=== PATIENT | female | born 1935 | race Caucasian/White ===

== ENCOUNTER 2017-04-16 05:10 | Day surgery (SDC) | payer MEDICARE, BC ==
[2017-04-15 15:12] LABS: ANION GAP 9.7 mmol/L (8-16); CALCIUM 9.2 mg/dL (8.5-10.1); CARBON DIOXIDE 31.4 mmol/L (21.0-32.0); CREATININE - SERUM 1.3 mg/dL (0.6-1.3); POTASSIUM - SERUM 4.1 mmol/L (3.5-5.1)
[2017-04-15 15:18] LABS: BASOPHILS 0.3 % (0-2); HEMATOCRIT 37.5 % (36.0-48.0); HEMOGLOBIN 12.7 g/dL (12-16); IMMATURE GRANULOCYTES 0.3 % (0-5); LYMPHOCYTES 31.2 % (15-50); MCH 32.3 pg (26.0-34.0); MCHC 33.9 g/dL (31.0-37.0); MCV 95.4 fL (80.0-100.0); MEAN PLATELET VOLUME 10.1 fL (7.4-10.4); MONOCYTES 9.2 % (2-11); PLATELET COUNT 140 10x3/uL (130-400); RBC 3.93 10x6/uL (4.00-5.40); RDW 12.9 % (11.5-14.5); WBC 3.9 10x3/uL (4.8-10.8)
[~2017-04-16 05:10] MED LIST: BUTRANS1 EAC2 TRANSDERM; CALTRATE 600 M600 M1 PO; CARDIZEM120 MG PO; COZAAR100 MG PO; DEXILANT60 MG PO; EXFORGE 5-320 M1 TAB PO; FLAGYL500 MG PO; FLORANEX / LACT1 TAB PO; HYDROCODONE-APA1 TAB PO; MULTIPLE VITAMI1 TA1 PO; PEPCID20 MG PO; REGLAN5 MG PO; SYNTHROID88 MCG PO; VITAMIN D31000 UNI2 PO
[2017-04-16 05:51] VITALS: BP 150/94; BMI 17.6
[2017-04-16] MEDS ORDERED: DILAUDID2 MG PO (08:36)
--- NOTE | 2017-04-17 12:36 | OP ---
PATIENT NAME: KIRILL PINA MEDICAL RECORD: [id number] :39 LOCATION:D.OPS ADMISSION DATE: SURGEON: ONEAL SIMS MD DATE OF OPERATION: 04/16/2017 PREOPERATIVE DIAGNOSES: 1. Left inguinal hernia. 2. Hypertension. 3. Arthritis. POSTOPERATIVE DIAGNOSES: 1. Left inguinal hernia. 2. Hypertension. 3. Arthritis. PROCEDURE: Left inguinal hernia repair with medium PHS mesh. SURGEON: Oneal Sims MD REPORT OF PROCEDURE: The patient's left groin was prepped and draped in sterile fashion. An oblique incision was made above the inguinal ligament. Electrocautery was used to dissect through the subcutaneous tissue to the external oblique fascia. This fascia was opened up using electrocautery to the external ring. The patient's round ligament was elevated and ligated proximally and distally. There was a direct hernia defect. The defect was opened up and the preperitoneal space of Retzius was opened in all directions. A medium PHS mesh was inserted and sutured down on all 4 sides using interrupted 0 Vicryls. The ilioinguinal nerve was found and high ligated. We then irrigated out the wound and assured there was no sign of any bleeding. At this point, the external oblique fascia was closed with running 2-0 Vicryls, Terrell's was closed with interrupted 3-0 Vicryls, and the skin was closed with running subcutaneous 5-0 Monocryl. A 10 mL of 0.25% Marcaine with epinephrine was infused into the surrounding tissues and the wound was dressed appropriately. COMPLICATIONS: None. CONDITION: Stable. ANESTHESIA: General endotracheal and local. BLOOD LOSS: Minimal. TRANSINT:[id number] Voice Confirmation ID: [id number] DOCUMENT ID: [id number] ONEAL SIMS MD at 1236 CC: DAIN MARION MD [id number] DICTATION DATE: 04/16/17 0840 CORROSION CONTROL TECHNICIAN: 04/16/17 1139 [facility] 04/16/[address] [address]
== END 2017-04-16 10:30 | disposition home or self-care (01) ==
LOC: D.OPS 05:10 → D.PAN 07:30 → D.OPS 10:30
PROVIDERS: Surgery
DX: K40.90 Unilateral inguinal hernia, without obstruction or gangrene, not specified as recurrent (principal); R15.9 Full incontinence of feces; I10 Essential (primary) hypertension; M19.90 Unspecified osteoarthritis, unspecified site; Z01.812 Encounter for preprocedural laboratory examination

== ENCOUNTER → 2018-06-22 10:15 | Outpatient (CLI) | payer MEDICARE, BC ==
--- NOTE | ~2018-06-22 | EC ---
PATIENT:KIRILL PINA DATE OF SERVICE: 06/22/18 SEX: F MEDICAL RECORD: [id number] DATE OF : 39 LOCATION:D.[facility] AGE OF PATIENT: 83 ADMISSION DATE: 06/22/18 REFERRING PHYSICIAN: INTERPRETING PHYSICIAN: MANNY POLLACK MD ECHOCARDIOGRAM REPORT ECHO CHARGES 4 ECHO COMPLETE Date: 06/22/18 CLINICAL DIAGNOSIS: SARCOMA ECHOCARDIOGRAPHIC MEASUREMENTS (adult normal given) AC root (d.<3.7cm) 3.0 cm LV Septum d (<1.2 cm> 1.2 cm Valve Excursion 1.3 cm LV Septum (systole) 1.7 cm Left Atria (s.<4.0cm> 2.6 cm LVPW d(<1.2cm) 1.0 cm RV (d.<2.3cm) cm LVPW (sytole) 1.7 cm LV diastole(<5.6CM) 3.7 cm MV E-F(>70mm/sec) cm LV systole 2.8 cm LVOT Diameter 1.6 cm MV exc.(>10mm) cm Est.ejection fraction (50-75%) % DOPPLER: LVIT cm/sec A 82 cm/sec E 46 cm/sec LA cm/sec RVSP 34.7 mmHg LVOT 59 cm/sec AOP1/2T m/s Asc. Ao 193 cm/sec RVOT 41 cm/sec RA cm/sec PA 56 cm/sec AV Gradient Peak 14.9 mmHg AV Mean 9.3 mmHg AV Area 2.1 cm MV Gradient Peak 7.0 mmHg MV Mean 4.1 mmHg MV Area cm COMMENTS: Windows Architect: Jigna MARQUEZ Impregnator Helper: 1 Dr. Pollack TAPE# PACS Pericardial Effusion N DATE OF SERVICE: 06/22/2018 FINDINGS: 1. Left ventricular chamber within normal limits. Left ventricular systolic function is normal. Overall ejection fraction estimated at 65%. 2. Left atrium, right atrium, and right ventricular chamber sizes are within normal limits. 3. Valvular structures have normal structure and motion. 4. Doppler interrogation reveals mild tricuspid regurgitation, no other valvular insufficiency or stenosis. Pulmonary systolic pressure is normal ECHOCARDIOGRAM REPORT [id number] KIRILL PINA estimated 35 mmHg. 5. No evidence of pericardial effusion or left ventricular thrombus. TRANSINT:[id number] Voice Confirmation ID: [id number] DOCUMENT ID: [id number] MANNY POLLACK MD at 1324 CC: [id number] DICTATION DATE: 06/22/18 1246 MUSIC VIDEO PRODUCER: 06/22/18 1318 [facility] [address] [id number]
[~2018-06-22 10:15] MED LIST changes: +DILAUDID2 MG PO
== END | disposition home or self-care (01) ==
LOC: D.ECHO 10:15 → D.CT 11:30
DX: C46.0 Kaposi's sarcoma of skin (principal)

== ENCOUNTER 2019-02-20 01:23 | Emergency (ER) | payer MEDICARE, BC ==
[~2019-02-20] VITALS: Ht 160 cm; Wt 46.4 kg
[2019-02-20 01:25] VITALS: Ht 160 cm; Wt 46.4 kg
[2019-02-20] MEDS ORDERED: PEPCID AC20 MG PO (01:27)
[2019-02-20] MEDS ORDERED: CARTIA XT180 MG PO (01:29)
[2019-02-20] MEDS ORDERED: EDARBYCLOR 40-1 EACH PO (01:30)
[2019-02-20] MEDS ORDERED: HYDROCODON-ACE1 EA10 PO (01:30)
[2019-02-20] MEDS ORDERED: FLAGYL500 MG PO (01:31)
[2019-02-20 01:48] LABS: BASOPHILS 0.2 % (0-2); EOSINOPHILS 1.8 % (0-7); HEMATOCRIT 32.8 % (36.0-48.0); HEMOGLOBIN 11.5 g/dL (12-16); IMMATURE GRANULOCYTES 0.2 % (0-5); LYMPHOCYTES 23.4 % (15-50); MCH 32.1 pg (26.0-34.0); MCHC 35.1 g/dL (31.0-37.0); MCV 91.6 fL (80.0-100.0); MEAN PLATELET VOLUME 9.1 fL (7.4-10.4); MONOCYTES 12.3 % (2-11); NEUTROPHILS 62.1 % (40-80); RBC 3.58 10x6/uL (4.00-5.40); RDW 13.1 % (11.5-14.5); WBC 5.1 10x3/uL (4.8-10.8)
[2019-02-20 01:55] LABS: PLATELET COUNT 171 10x3/uL (130-400)
[2019-02-20 02:08] LABS: ALBUMIN 3.5 g/dL (3.4-5.0); ALKALINE PHOSPHATASE 117 U/L (46-116); ALT (SGPT) 57 U/L (10-68); CALC OSMOLALITY 267 mosm/kg (275-300); CALCIUM 9.5 mg/dL (8.5-10.1); CARBON DIOXIDE 25.6 mmol/L (21.0-32.0); CHLORIDE - SERUM 96 mmol/L (98-107); CREATININE - SERUM 1.3 mg/dL (0.6-1.3); GLUCOSE 115 mg/dL (74-106); POTASSIUM - SERUM 3.5 mmol/L (3.5-5.1); PROTEIN - SERUM 6.3 g/dL (6.4-8.2); SODIUM 131 mmol/L (136-145); UREA NITROGEN 24 mg/dL (7-18); eGFR NON AFRICAN AMERICAN 42 mL/min (90-120)
[2019-02-20 02:20] LABS: CKMB 0.6 U/L (0.0-3.6); CREATINE KINASE 52 UL (21-215)
[2019-02-20 02:21] LABS: TROPONIN-I < 0.017 ng/mL (0.000-0.060)
[2019-02-20 02:48] LABS: APPEARANCE HAZY (CLEAR); BACTERIA MANY /hpf (NONE SEEN); BILIRUBIN NEGATIVE (NEGATIVE); COLOR YELLOW (YELLOW); EPITHELIAL CELLS 0-5 /hpf (0-5); GLUCOSE NEGATIVE (NEGATIVE); KETONE NEGATIVE (NEGATIVE); NITRITE POSITIVE (NEGATIVE); PROTEIN NEGATIVE (NEGATIVE); RED CELLS - URINE 0-5 /hpf (0-5); SPECIFIC GRAVITY 1.015 (1.005-1.020); UROBILINOGEN NORMAL (NORMAL)
[2019-02-20 03:57] VITALS: BP 124/77
[2019-02-21] MEDS ORDERED: ASPIRIN81 MG PO (19:29)
[2019-02-21] MEDS ORDERED: ALEVE220 MG PO (19:32)
[2019-02-21] MEDS ORDERED: CIPRO250 MG PO (19:35)
== END 2019-02-20 04:02 | disposition home or self-care (01) ==
LOC: D.ER 01:23
PROVIDERS: Family Medicine
DX: R55 Syncope and collapse (principal); E86.0 Dehydration; R19.7 Diarrhea, unspecified

== ENCOUNTER 2019-02-21 18:14 | Inpatient (IN) | payer MEDICARE, BC ==
[~2019-02-21] VITALS: Ht 160 cm; Wt 47.6 kg
[~2019-02-21 18:14] MED LIST changes: +CARTIA XT180 MG PO; +EDARBYCLOR 40-1 EACH PO; +HYDROCODON-ACE1 EA10 PO; +PEPCID AC20 MG PO
[2019-02-21 18:59] VITALS: BMI 18.6
[2019-02-21] MEDS ORDERED: ASPIRIN81 MG PO (19:29)
[2019-02-21] MEDS ORDERED: ALEVE220 MG PO (19:32)
[2019-02-21] MEDS ORDERED: CIPRO250 MG PO (19:35)
[2019-02-21 20:00] VITALS: BP 135/80
--- NOTE | 2019-02-21 20:07 | NUR ---
PATIENT RESTING IN BED WITH AT BEDSIDE. PATIENT REQUESTED PAIN MEDS AND ZOFRAN. PATIENT DENIES OTHER NEEDS AT THIS TIME. BED IN LOWEST POSITION AND CALL LIGHT WITHIN REACH. ENCOURAGED THE PATIENT TO CALL IF SHE HAS OTHER NEEDS. WILL CONTINUE TO MONITOR.
[2019-02-21 20:33] LABS: BASOPHILS 0.5 % (0-2); EOSINOPHILS 1.3 % (0-7); HEMOGLOBIN 11.1 g/dL (12-16); IMMATURE GRANULOCYTES 0.3 % (0-5); LYMPHOCYTES 23.4 % (15-50); MCH 32.4 pg (26.0-34.0); MCHC 35.8 g/dL (31.0-37.0); MCV 90.4 fL (80.0-100.0); MEAN PLATELET VOLUME 9.7 fL (7.4-10.4); MONOCYTES 9.3 % (2-11); NEUTROPHILS 65.2 % (40-80); PLATELET COUNT 167 10x3/uL (130-400); RBC 3.43 10x6/uL (4.00-5.40); RDW 12.9 % (11.5-14.5); WBC 3.9 10x3/uL (4.8-10.8)
[2019-02-21 20:46] LABS: ALBUMIN 3.5 g/dL (3.4-5.0); ANION GAP 11.5 mmol/L (8-16); BILIRUBIN - TOTAL 0.48 mg/dL (0.2-1.3); CARBON DIOXIDE 26.2 mmol/L (21.0-32.0); CREATININE - SERUM 1.1 mg/dL (0.6-1.3); POTASSIUM - SERUM 3.7 mmol/L (3.5-5.1); PROTEIN - SERUM 6.5 g/dL (6.4-8.2)
[2019-02-21 22:38] LABS: APPEARANCE CLEAR (CLEAR); BILIRUBIN NEGATIVE (NEGATIVE); COLOR YELLOW (YELLOW); GLUCOSE NEGATIVE (NEGATIVE); KETONE NEGATIVE (NEGATIVE); NITRITE NEGATIVE (NEGATIVE); PROTEIN NEGATIVE (NEGATIVE); UROBILINOGEN NORMAL (NORMAL)
[2019-02-22 06:58] VITALS: BP 111/74
[2019-02-22 07:01] LABS: BASOPHILS 0.3 % (0-2); EOSINOPHILS 2.8 % (0-7); HEMOGLOBIN 11.3 g/dL (12-16); IMMATURE GRANULOCYTES 0.3 % (0-5); LYMPHOCYTES 28.9 % (15-50); MCH 31.9 pg (26.0-34.0); MCHC 35.3 g/dL (31.0-37.0); MCV 90.4 fL (80.0-100.0); MEAN PLATELET VOLUME 9.4 fL (7.4-10.4); MONOCYTES 12.5 % (2-11); NEUTROPHILS 55.2 % (40-80); PLATELET COUNT 177 10x3/uL (130-400); RBC 3.54 10x6/uL (4.00-5.40); RDW 12.7 % (11.5-14.5); WBC 3.5 10x3/uL (4.8-10.8)
[2019-02-22 07:18] LABS: ANION GAP 9.8 mmol/L (8-16); CALCIUM 8.9 mg/dL (8.5-10.1); CARBON DIOXIDE 26.7 mmol/L (21.0-32.0); CREATININE - SERUM 1.1 mg/dL (0.6-1.3); MAGNESIUM - SERUM 1.6 mg/dL (1.8-2.4); PHOSPHOROUS 2.3 mg/dL (2.5-4.9); POTASSIUM - SERUM 3.5 mmol/L (3.5-5.1)
[2019-02-22 08:00] VITALS: BP 122/70
--- NOTE | 2019-02-22 10:34 | NUR ---
AM MEDS GIVEN AT THIS TIME, PT VERY NAUSEOUS WAS NOT ABLE TO KEEP MEDICATIONS DOWN. GAVE 4MG OF ZOFRAN AT THIS TIME. WILL REPLACE MAG IV INSTEAD. PT DENIES ANY NEED AT THIS TIME. CALL LIGHT IN REACH, NAD NOTED, FAMILY AT BEDSIDE, WILL CONTINUE TO MONITOR.
[2019-02-22 11:13] VITALS: Ht 160 cm; Wt 47.6 kg
--- NOTE | 2019-02-22 11:59 | MORECARE ---
CASE MANAGEMENT DISCHARGE SUMMARY PATIENT: KRIILL PINA UNIT: [id number] ADM DATE: 02/21/19 AGE: 83 : 37 SEX: F ROOM/BED: D.1207 AUTHOR: ERLINDA WALKER PHYSICIAN: REFERRING PHYSICIAN: PARAM MARION MD DATE OF SERVICE: 02/22/19 Discharge Plan Patient Name: KIRILL PINA [facility] [facility] 1935 Planned Disposition: Home Anticipated Discharge Date: 02/24/19 Discharge Date: Expected LOS: 3 Initial Reviewer: [email or web address] Initial Review Date: 02/21/2019 Generated: 02/22/19 12:58 pm Patient Name: KIRILL PINA Page 44989 at 1159 All edits/amendments must be made on the electronic document DICTATION DATE: 02/22/19 1158 DIGGING MACHINE OPERATOR: GARY 02/22/19 1158 RPT#: [id number] DC DATE: STATUS: ADM IN [facility] [address] [place] [address] END OF REPORT
--- NOTE | 2019-02-22 12:08 | MORECARE ---
CASE MANAGEMENT DISCHARGE SUMMARY PATIENT: KIRILL PINA UNIT: [id number] ADM DATE: 02/22/19 AGE: 83 : 37 SEX: F ROOM/BED: D.1207 AUTHOR: AARON,DOC PHYSICIAN: REFERRING PHYSICIAN: PARAM BRUNNER MD DATE OF SERVICE: 02/22/19 Discharge Plan Patient Name: KIRILL PINA Facility: [facility]:[place] : 1935 Planned Disposition: Home Anticipated Discharge Date: 02/24/19 Discharge Date: Expected LOS: 3 Initial Reviewer: [email or web address] Initial Review Date: 02/21/2019 Generated: 02/22/19 1:08 pm DCP- Discharge Planning Updated by [email or web address]: Britney Kan on 02/22/19 11:[address] Patient Name: KIRILL PINA Admission Status: Elective Accout number: [id number] Admission Date: 02-21-2019 : 1935 Admission Diagnosis: Attending: DAIN BRUNNER Current LOS: 1 Anticipated DC Date: 02-24-2019 Planned Disposition: Home Primary Insurance: MEDICARE A & B Discharge Planning Comments: DC PLAN: Return home with spouse independently. DC NEEDS: Denied dc needs. CM met with patient to complete initial dc planning assessment. CM educated patient on the CM role and verbal consent given by patient to complete assessment. CM verified patient's address, phone number, and emergency contact phone numbers. Patient lives at home with her . At discharge patient plans to return home and feels this is a safe discharge. CM discussed availability of home health, rehab services, and medical equipment. Patient denied known discharge needs at this time. Patient reports her will transport her home at time of discharge. CM will continue to follow and will assist as needed with dc plans/needs. Back End Engineer: Britney Kan RN, [facility] DCPIA - Discharge Planning Initial Assessment Updated by [email or web address]: Britney Kan on 02/22/19 11:59 am * Is the patient Alert and Oriented? Yes * How many steps to enter\exit or inside your home? bibe * PCP Dr. Brunner * Pharmacy [facility] * Preadmission Environment Home with Family * ADLs Independent * Equipment None * List name and contact numbers for known caregivers / representatives who currently or will assist patient after discharge: Iraj hernandez - [phone] * Verbal permission to speak to the caregivers and representatives has been obtained from the patient. Yes * Community resources currently utilized None * Additional services required to return to the preadmission environment? No * Can the patient safely return to the preadmission environment? Yes * Has this patient been hospitalized within the prior 30 days at any hospital? No Last DP export: 02/22/19 10:59 a Patient Name: KIRILL PINA Page [id number] at 1208 All edits/amendments must be made on the electronic document DICTATION DATE: 02/22/191207 PIZZAMAKER: GARY 02/22/191207 RPT#: [id number] DC DATE: STATUS: ADM IN [facility] [address] [place] [address] END OF REPORT
[2019-02-22 12:17] VITALS: BP 155/83
--- NOTE | 2019-02-22 12:52 | NUR ---
REPORT RECIEVED FROM TABITHA MOFFETT. POC WILL BE RESUMED. PT C/O BACK PAIN AND NAUSEA. PAIN MEDS AND ANTIEMETICS ARE NOT DUE YET. WILL CONTINUE TO MONITOR.
[2019-02-22 18:32] VITALS: BP 136/76
[2019-02-22 19:00] VITALS: BP 123/64
--- NOTE | 2019-02-22 19:30 | NUR ---
REC'D TO CARE, BINDER AND BOX BUILDER PER FLOWSHEET. PT RESTING QUIETLY, AT BS. VSS. PT DENIES NAUSEA, REPORTS "BACK STARTING TO HURT AGAIN". WILL ADMIN PRN MEDS NEEDED. C/L IN REACH.
--- NOTE | 2019-02-22 20:12 | NUR ---
ADMIN PRN DEMEROL PER PT REQUEST - SEE EMAR. AT BS. PT REPOSITIONED SELF TO R SIDE. C/L IN REACH.
[2019-02-22 23:22] VITALS: BP 122/73
--- NOTE | 2019-02-22 23:32 | NUR ---
UP TO BR, VOIDED 300ML CLEAR, YELLOW URINE. C/O BACK PAIN AFTER GETTING UP. ADMIN PRN NORCO - SEE FLOWSHEET, GIVEN SPRITE TO DRINK. DENIES OTHER NEEDS. C/L IN REACH.
--- NOTE | 2019-02-23 03:15 | NUR ---
VSS. PT RESTING QUIETLY, DENIES PAIN OR NEEDS. C/L IN REACH.
[2019-02-23 03:45] VITALS: BP 121/67
[2019-02-23 06:02] LABS: BASOPHILS 0.2 % (0-2); EOSINOPHILS 0.9 % (0-7); HEMATOCRIT 29.7 % (36.0-48.0); IMMATURE GRANULOCYTES 0.2 % (0-5); LYMPHOCYTES 28.1 % (15-50); MCH 32.9 pg (26.0-34.0); MCV 88.9 fL (80.0-100.0); MEAN PLATELET VOLUME 9.1 fL (7.4-10.4); MONOCYTES 11.6 % (2-11); PLATELET COUNT 168 10x3/uL (130-400); RBC 3.34 10x6/uL (4.00-5.40); RDW 12.6 % (11.5-14.5); WBC 4.2 10x3/uL (4.8-10.8)
[2019-02-23 06:20] LABS: CALCIUM 7.8 mg/dL (8.5-10.1); CARBON DIOXIDE 24.6 mmol/L (21.0-32.0); POTASSIUM - SERUM 3.6 mmol/L (3.5-5.1)
--- NOTE | 2019-02-23 06:26 | NUR ---
PHARMACY NOTIFIED OF ORDER FOR NA [facility].
[2019-02-23 07:30] VITALS: BP 136/75
--- NOTE | 2019-02-23 08:25 | NUR ---
PT AWAKE, ALERT, AND ORIENTED. VSS AT THIS TIME. DENIES NEEDS OR PAIN. RR EVEN AND UNLABORED. NO DISTRESS NOTED. WILL CONTINUE TO MONITOR.
--- NOTE | 2019-02-23 15:48 | NUR ---
I have reviewed this patient and I concur with the Shift Assessment completed by the Licensed Practical Nurse today this shift.
[2019-02-23 18:28] VITALS: BP 150/72
[2019-02-23 19:10] VITALS: BP 131/71
--- NOTE | 2019-02-23 19:25 | NUR ---
REC'D TO CARE, SPINNING FRAME TENDER PER FLOWSHEET. PT AWAKE AND ORIENTED, VSS. DENIES PAIN OR NAUSEA. UP TO BR AND AMBULATES IN ROOM INDEPENDENTLY. IVF INFUSING TO R FA PIV, DSG C/D/I. PT DENIES NEEDS. C/L IN REACH.
--- NOTE | 2019-02-23 22:36 | NUR ---
PT ON C/L, C/O PAIN - ADMIN PRN NORCO - SEE EMAR. PT UP TO BR, THEN BACK TO BED. DENIES OTHER NEEDS. C/L IN REACH.
--- NOTE | 2019-02-23 22:36 | NUR ---
PT ON C/L, REQUESTING PAIN MED - ADMIN PRN MORPHINE. SEE EMAR. PT UP TO BR. THEN BACK TO BED. C/L IN REACH.
[2019-02-23 23:10] VITALS: BP 121/62
--- NOTE | 2019-02-23 23:31 | NUR ---
PT RESTING WITH EYES CLOSED, NO SIGN OF DISTRESS. C/L IN REACH.
[2019-02-24 03:15] VITALS: BP 116/62
--- NOTE | 2019-02-24 03:30 | NUR ---
VSS. PT AWAKE, PLAN FOR BATH THIS AM. C/L IN REACH.
--- NOTE | 2019-02-24 04:30 | NUR ---
BATH AND LINEN CHANGE DONE. GOWN AND UNDERWEAR CHANGED. PT C/O PAIN AFTER BATH. ADMIN PRN DEMEROL - SEE EMAR. PT DENIES OTHER NEEDS, C/L IN REACH.
[2019-02-24 07:22] LABS: BASOPHILS 0 % (0-2); EOSINOPHILS 0.5 % (0-7); HEMATOCRIT 30.7 % (36.0-48.0); HEMOGLOBIN 10.8 g/dL (12-16); LYMPHOCYTES 19.1 % (15-50); MCHC 35.2 g/dL (31.0-37.0); MEAN PLATELET VOLUME 9.3 fL (7.4-10.4); MONOCYTES 10.4 % (2-11); PLATELET COUNT 181 10x3/uL (130-400); RBC 3.37 10x6/uL (4.00-5.40); RDW 13.3 % (11.5-14.5)
--- NOTE | 2019-02-24 07:30 | NUR ---
PT RESTING. DENIES NEEDS AT THIS TIME. ALERT AND ORIENTED. BEDSIDE REPORT RECIEVED. RR EVEN AND UNLABORED. WILL CONTINUE TO MONITOR.
[2019-02-24 07:32] LABS: MCV 91.1 fL (80.0-100.0)
[2019-02-24 07:42] LABS: CALCIUM 8.3 mg/dL (8.5-10.1); CARBON DIOXIDE 24.9 mmol/L (21.0-32.0); CREATININE - SERUM 0.9 mg/dL (0.6-1.3); MAGNESIUM - SERUM 1.8 mg/dL (1.8-2.4); PHOSPHOROUS 1.7 mg/dL (2.5-4.9); POTASSIUM - SERUM 3.9 mmol/L (3.5-5.1)
[2019-02-24 08:01] VITALS: BP 122/66
--- NOTE | 2019-02-24 09:54 | NUR ---
NUTRITION F/U CHART REVIEWED. PT REMAINS ON CLEAR LIQUID DIET. RECOMMEND ADVANCING DIET WHEN MEDICALLY FEASIBLE. MAY BENEFIT FROM PROCALAMINE IF UNABLE TO ADVANCE DIET IN [address] FOLLOWING
--- NOTE | 2019-02-24 14:21 | NUR ---
I have reviewed this patient and I concur with the Shift Assessment completed by the Licensed Practical Nurse today this shift.
[2019-02-24 18:28] VITALS: BP 131/81
--- NOTE | 2019-02-24 20:15 | NUR ---
FAMILY MEMBERS VISITING.
--- NOTE | 2019-02-24 20:15 | NUR ---
CHECKED PT TEMP 99.4
[2019-02-24 22:15] VITALS: BP 140/85
--- NOTE | 2019-02-24 23:16 | NUR ---
REST IN BED, CALL LIGHT IN REACH.
--- NOTE | 2019-02-25 02:09 | NUR ---
REST IN BED, RESP REGULAR AND EVEN, NO S/S DISTRESS. CALL LIGHT IN REACH.
--- NOTE | 2019-02-25 02:19 | NUR ---
I have reviewed this patient and I concur with the Shift Assessment completed by the Licensed Practical Nurse today this shift.
--- NOTE | 2019-02-25 04:12 | NUR ---
REST IN BED, EYE CLOSE, CALL LIGHT IN REACH.
[2019-02-25 06:13] VITALS: BP 144/81
[2019-02-25 07:00] LABS: ANION GAP 11.1 mmol/L (8-16); CALCIUM 8.2 mg/dL (8.5-10.1); CARBON DIOXIDE 23.8 mmol/L (21.0-32.0); CREATININE - SERUM 0.8 mg/dL (0.6-1.3); MAGNESIUM - SERUM 1.6 mg/dL (1.8-2.4); POTASSIUM - SERUM 3.9 mmol/L (3.5-5.1)
[2019-02-25 07:14] LABS: PHOSPHOROUS 1.5 mg/dL (2.5-4.9)
[2019-02-25 07:15] LABS: BASOPHILS 0.2 % (0-2); EOSINOPHILS 1.8 % (0-7); HEMATOCRIT 30.9 % (36.0-48.0); HEMOGLOBIN 10.8 g/dL (12-16); IMMATURE GRANULOCYTES 0.2 % (0-5); LYMPHOCYTES 22.7 % (15-50); MCH 32.1 pg (26.0-34.0); MEAN PLATELET VOLUME 9.5 fL (7.4-10.4); MONOCYTES 10.9 % (2-11); NEUTROPHILS 64.2 % (40-80); PLATELET COUNT 173 10x3/uL (130-400); RBC 3.36 10x6/uL (4.00-5.40); RDW 13.4 % (11.5-14.5)
--- NOTE | 2019-02-25 07:24 | NUR ---
ROUNDING DONE WITH PATIENT VOIVING NO NEEDS. NS W 20 MEQ INFUSING AT 100 CC/HR TO RIGHT WRIST WITHOUT PROBLEMS. ON ROOM AIR. ON EP, K+ IS 3.9, PHOS IS 1.5 WILL COVER WITH ORAL SUPPLEMENTS. ON FLUID RESTRICTION.
[2019-02-25 07:27] LABS: WBC 5.1 10x3/uL (4.8-10.8)
[2019-02-25 08:25] VITALS: BP 146/86
[2019-02-25 11:36] VITALS: BP 141/82
[2019-02-25 14:18] VITALS: BP 124/76
[2019-02-25 15:10] LABS: OVA + PARASITE EXAM Final report (())
--- NOTE | 2019-02-25 19:40 | NUR ---
PT CARE ASSUMED. RR EVEN AND UNLABORED. DENIES NEEDS AT THIS TIME. NO S/S OF DISTRESS NOTED. PRESENT AT BEDSIDE. CALL LIGHT IN REACH. WILL CPOC.
[2019-02-25 20:00] VITALS: BP 136/64
[2019-02-26 00:23] VITALS: BP 119/70
[2019-02-26 04:49] VITALS: BP 135/83
[2019-02-26 06:05] LABS: BASOPHILS 0.4 % (0-2); EOSINOPHILS 1.3 % (0-7); HEMATOCRIT 34.7 % (36.0-48.0); HEMOGLOBIN 12.1 g/dL (12-16); IMMATURE GRANULOCYTES 0.2 % (0-5); LYMPHOCYTES 28.4 % (15-50); MCH 32.1 pg (26.0-34.0); MCHC 34.9 g/dL (31.0-37.0); MEAN PLATELET VOLUME 9.1 fL (7.4-10.4); MONOCYTES 9.7 % (2-11); PLATELET COUNT 178 10x3/uL (130-400); RBC 3.77 10x6/uL (4.00-5.40); RDW 13.3 % (11.5-14.5); WBC 5.4 10x3/uL (4.8-10.8)
--- NOTE | 2019-02-26 06:10 | NUR ---
I have reviewed this patient and I concur with the Shift Assessment completed by the Licensed Practical Nurse today this shift.
[2019-02-26 06:31] LABS: ANION GAP 10.2 mmol/L (8-16); CALCIUM 8.7 mg/dL (8.5-10.1); CARBON DIOXIDE 27.6 mmol/L (21.0-32.0); MAGNESIUM - SERUM 1.6 mg/dL (1.8-2.4); POTASSIUM - SERUM 3.8 mmol/L (3.5-5.1)
[2019-02-26 06:32] LABS: PHOSPHOROUS 2.3 mg/dL (2.5-4.9)
--- NOTE | 2019-02-26 06:36 | NUR ---
D/C IV TO R FA. CATHETER TIP INTACT. RESITED 22G L FA. PT TOLERATED WELL.
[2019-02-26 08:48] VITALS: BP 137/74
--- NOTE | 2019-02-26 12:10 | NUR ---
PT SITTING ON SIDE OF BED, SPOUSE AT BEDSIDE, DENIES ANY NEEDS AT THIS TIME, WILL CONT TO FOLLOW POC
--- NOTE | 2019-02-26 13:00 | NUR ---
PT UP WALKING THE HALLS WITH SPOUSE
--- NOTE | 2019-02-26 17:13 | NUR ---
PT SITTING UP IN BED EATTING SUPPER, DENIES ANY NEEDS AT THIS TIME, WILL CONT TO FOLLOW POC
--- NOTE | 2019-02-26 19:38 | NUR ---
PT CARE ASSUMED. RR EVEN AND UNLABORED. NO S/S OF DISTRESS NOTED. PT DENIES NEEDS AT THIS TIME. AT BEDSIDE. WILL CPOC.
[2019-02-26 20:00] VITALS: BP 140/81
[2019-02-27] VITALS (7 sets, daily range): BP systolic 126–141; BP diastolic 70–86
--- NOTE | 2019-02-27 07:20 | NUR ---
PT RESTING IN BED, SHIFT ASSESSMENT PERFORMED, VSS AND WNL. DENIES ANY FURTHER NEEDS AT THIS TIME, WILL CONT TO FOLLOW POC
[2019-02-27 07:44] LABS: BASOPHILS 0.2 % (0-2); HEMATOCRIT 32.8 % (36.0-48.0); IMMATURE GRANULOCYTES 0.2 % (0-5); LYMPHOCYTES 26.8 % (15-50); MCH 33.1 pg (26.0-34.0); MCHC 36.6 g/dL (31.0-37.0); MCV 90.6 fL (80.0-100.0); MONOCYTES 10.4 % (2-11); NEUTROPHILS 61.4 % (40-80); PLATELET COUNT 174 10x3/uL (130-400); RBC 3.62 10x6/uL (4.00-5.40); WBC 4.1 10x3/uL (4.8-10.8)
[2019-02-27 08:08] LABS: ANION GAP 9.1 mmol/L (8-16); CALCIUM 8.6 mg/dL (8.5-10.1); CARBON DIOXIDE 28.2 mmol/L (21.0-32.0); CREATININE - SERUM 0.9 mg/dL (0.6-1.3); POTASSIUM - SERUM 4.3 mmol/L (3.5-5.1)
--- NOTE | 2019-02-27 08:53 | NUR ---
PT COMPLAINS OF PAIN TO BACK. PRN NORCO GIVEN ORDERED. WILL CONT TO FOLLOW POC
--- NOTE | 2019-02-27 12:20 | NUR ---
PT SITTING ON EDGE OF BED EATING LUNCH, DENIES ANY NEEDS AT THIS TIME, WILL CONT TO FOLLOW POC
--- NOTE | 2019-02-27 15:00 | NUR ---
PT WALKING THE HALLS WITH SPOUSE
--- NOTE | 2019-02-27 19:20 | NUR ---
SITTING UP ON SIDE OF BED TALKING TO FAMILY. ALERT AND ORIENTED X4. RESP EVEN AND NONLABORED. REPORTS CHRONIC PAIN IN BACK RATING 7 ON PAIN SCALE. DENIES ABD PAIN, NAUSEA OR DIARRHEA. SALINE LOCK NOTED TO LT FOREARM. INFORMED PT THAT SHE IS SCHEDULED FOR EGD IN AM. SHE VERBALIZED UNDERSTANDING. AMBULATORY. CL IN REACH.
--- NOTE | 2019-02-27 20:10 | NUR ---
MEDICATED WITH HYDROCODONE FOR C/O PAIN IN BACK RATING 8.
--- NOTE | 2019-02-27 20:30 | NUR ---
CONSENT FOR EGG WITH TIVA SIGNED AT THIS TIME. PT HAS HAD PROCEDURE BEFORE AND VERBALIZES UNDERSTANDING. CONSENTS PLACED ON CHART.
--- NOTE | 2019-02-27 21:38 | NUR ---
C/O NAUSEA. MEDICATED WITH ZOFRAN AT THIS TIME. REFUSES QUESTRAN DUE TO NAUSEA. CL IN REACH.
--- NOTE | 2019-02-27 22:45 | NUR ---
RESTING QUIETLY WITH EYES CLOSED. RESP EVEN AND NONLABORED. NO DISTRESS. CL IN REACH.
--- NOTE | 2019-02-27 23:59 | NUR ---
MEDICATED WITH TYLENOL FOR C/O CHRONIC BACK PAIN. REMINDED OF NPO STATUS AFTER MIDNIGHT AND SHE VERBALIZED UNDERSTANDING. CL IN REACH.
[2019-02-28 03:50] VITALS: BP 137/82
--- NOTE | 2019-02-28 03:54 | NUR ---
HAS RESTED WELL SO FAR THIS SHIFT. UP TO BR TO VOID. NO DISTRESS. CL IN REACH.
[2019-02-28 06:16] LABS: BASOPHILS 0.2 % (0-2); EOSINOPHILS 0.9 % (0-7); HEMATOCRIT 33.5 % (36.0-48.0); HEMOGLOBIN 11.9 g/dL (12-16); IMMATURE GRANULOCYTES 0.2 % (0-5); LYMPHOCYTES 26.9 % (15-50); MCHC 35.5 g/dL (31.0-37.0); MCV 90.1 fL (80.0-100.0); MONOCYTES 11.8 % (2-11); PLATELET COUNT 187 10x3/uL (130-400); RBC 3.72 10x6/uL (4.00-5.40); RDW 13.1 % (11.5-14.5); WBC 4.5 10x3/uL (4.8-10.8)
[2019-02-28 06:47] LABS: ANION GAP 11.7 mmol/L (8-16); CALCIUM 8.6 mg/dL (8.5-10.1); CARBON DIOXIDE 25.9 mmol/L (21.0-32.0)
[2019-02-28 06:48] LABS: POTASSIUM - SERUM 3.6 mmol/L (3.5-5.1)
[2019-02-28 07:39] VITALS: BP 130/86
[2019-02-28 08:31] LABS: % SATURATION 29 % (15-55); IRON 73 ug/dl (35-150); TOTAL IRON BIND CAPACITY 248 ug/dl (260-445); UNSAT IRON BIND CAPACITY 175 ug/dl (150-375)
[2019-02-28 08:59] LABS: FERRITIN 47 ng/mL (3-244); MAGNESIUM - SERUM 1.7 mg/dL (1.8-2.4)
--- NOTE | 2019-02-28 10:45 | NUR ---
CALLED GI LAB AND WAS INFORMED THAT PT IS NOT GOING FOR EGD UNTIL AFTER 2. GAVE PT NORCO FOR PAIN LEVEL OF 9/10. PT DENIES ANY OTHER NEEDS AT THIS TIME. CALL LIGHT IN REACH, AT BEDSIDE, NAD NOTED, WILL CONTINUE TO MONITOR.
--- NOTE | 2019-02-28 13:28 | NUR ---
Nutrition FOllow-up: Diet: Mech soft (currently NPO for EGD) PO intake: 38% x last 6 meals Reports tolerating diet and appetite a little better. Doesn't like Ensure clear, wants regular Ensure chocolate. Last BM 02/26/19 x 4 Last wt: 105# (02/22/19) Labs reviewed Significant meds: reglan, synthroid, flagyl, others reviewed RD Following
[2019-02-28 14:10] VITALS: BP 123/77
--- NOTE | 2019-02-28 14:27 | NUR ---
PT TO GI LAB AT THIS TIME, VIA BED, NAD NOTED.
--- NOTE | 2019-02-28 14:59 | NUR ---
EGD COMPLETED, BALLOON DILITATION 18.
--- NOTE | 2019-02-28 15:25 | NUR ---
RECEIVED PT BACK TO ROOM 1207. PT A LITTLE SLEEPY BUT EASILY AROUSES TO VOICE. VITAL SIGNS STABLE. PT DENIES ANY NEEDS AT THIS TIME. CALL LIGHT IN REACH, NAD NOTED, WILL CONTINUE TO MONITOR.
[2019-02-28 16:20] VITALS: BP 137/85
--- NOTE | 2019-02-28 18:50 | NUR ---
EVENING ROUNDS COMPLETE. PT LAYING IN BED, NO C/O PAIN AT THIS TIME. C/O DIAHRRHEA PRN MED LOMOTIL GIVEN. CL IN REACH, BED IN LOWEST POSITION. CONT WITH POC.
--- NOTE | 2019-02-28 19:30 | NUR ---
ATTEMPTED TO GIVE PT IVPB, WHEN SALINE LOCKED IV FLUSHED, FLUID WAS NOTED UNDER TEGADERM. IV REMOVED WITH TIP INTACT. NEW IV STARTED IN R FOREARM. PT TOLERATED WELL. EVENING MEDS STARTED. CONT WITH POC.
[2019-02-28 23:21] VITALS: BP 124/69
[2019-03-01 04:17] VITALS: BP 122/70
[2019-03-01 05:59] LABS: BASOPHILS 0.3 % (0-2); EOSINOPHILS 1.1 % (0-7); HEMATOCRIT 33.1 % (36.0-48.0); HEMOGLOBIN 11.7 g/dL (12-16); IMMATURE GRANULOCYTES 0.3 % (0-5); LYMPHOCYTES 29.6 % (15-50); MCH 31.9 pg (26.0-34.0); MCHC 35.3 g/dL (31.0-37.0); MCV 90.2 fL (80.0-100.0); MEAN PLATELET VOLUME 9.1 fL (7.4-10.4); MONOCYTES 14.1 % (2-11); NEUTROPHILS 54.6 % (40-80); PLATELET COUNT 181 10x3/uL (130-400); RBC 3.67 10x6/uL (4.00-5.40); RDW 13.3 % (11.5-14.5); WBC 3.8 10x3/uL (4.8-10.8)
[2019-03-01 06:27] LABS: ANION GAP 11.7 mmol/L (8-16); CALCIUM 8.7 mg/dL (8.5-10.1); CARBON DIOXIDE 26.7 mmol/L (21.0-32.0); CREATININE - SERUM 1.1 mg/dL (0.6-1.3); POTASSIUM - SERUM 3.4 mmol/L (3.5-5.1)
--- NOTE | 2019-03-01 07:54 | NUR ---
PT RESTING. RR EVEN AND UNLABORED. NO DISTRESS NOTED. WILL CONTINUE TO MONITOR.
[2019-03-01 09:39] VITALS: BP 151/87
[2019-03-01 11:05] VITALS: BP 128/81
[2019-03-01] MEDS ORDERED: LOMOTIL 2.5-0.1 EAC1 PO (15:46)
--- NOTE | 2019-03-01 17:09 | NUR ---
IV D/C WITH CATHETER TIP INTACT. D/C PAPERWORK REVIEWED AND SIGNED. NO FURTHER QUESTIONS AND VERBALIZED UNDERSTANDING. LEFT VIA WHEELCHAIR. PT SENT WITH ALL BELONGINGS.
--- NOTE | 2019-03-01 18:07 | MORECARE ---
CASE MANAGEMENT DISCHARGE SUMMARY PATIENT: KIRILL PINA UNIT: [id number] ADM DATE: 02/22/19 AGE: 83 : 37 SEX: F ROOM/BED: D.1207 AUTHOR: ERLINDA WALKER PHYSICIAN: REFERRING PHYSICIAN: PARAM BRUNNER MD DATE OF SERVICE: 03/01/19 Discharge Plan Patient Name: KIRILL PINA Facility: [facility]:[place] : 1935 Planned Disposition: Home Anticipated Discharge Date: 02/24/19 Discharge Date: 03/01/2019 Expected LOS: 2 Initial Reviewer: [email or web address] Initial Review Date: 02/21/2019 Generated: 03/01/19 7:07 pm DCP- Discharge Planning Updated by [email or web address]: Britney Kan on 02/22/19 11:[address] Patient Name: KIRILL PINA Admission Status: Elective Accout number: [id number] Admission Date: 02-21-2019 : 1935 Admission Diagnosis: Attending: DAIN BRUNNER Current LOS: 1 Anticipated DC Date: 02-24-2019 Planned Disposition: Home Primary Insurance: MEDICARE A & B Discharge Planning Comments: DC PLAN: Return home with spouse independently. DC NEEDS: Denied dc needs. CM met with patient to complete initial dc planning assessment. CM educated patient on the CM role and verbal consent given by patient to complete assessment. CM verified patient's address, phone number, and emergency contact phone numbers. Patient lives at home with her . At discharge patient plans to return home and feels this is a safe discharge. CM discussed availability of home health, rehab services, and medical equipment. Patient denied known discharge needs at this time. Patient reports her will transport her home at time of discharge. CM will continue to follow and will assist as needed with dc plans/needs. Environmental Service Aide: Britney Kan RN, [facility] DCPIA - Discharge Planning Initial Assessment Updated by [email or web address]: Britney Kan on 02/22/19 11:59 am * Is the patient Alert and Oriented? Yes * How many steps to enter\exit or inside your home? bibe * PCP Dr. Brunner * Pharmacy [facility] * Preadmission Environment Home with Family * ADLs Independent * Equipment None * List name and contact numbers for known caregivers / representatives who currently or will assist patient after discharge: Iraj hernandez - [phone] * Verbal permission to speak to the caregivers and representatives has been obtained from the patient. Yes * Community resources currently utilized None * Additional services required to return to the preadmission environment? No * Can the patient safely return to the preadmission environment? Yes * Has this patient been hospitalized within the prior 30 days at any hospital? No Last DP export: 02/22/19 11:08 a Patient Name: KIRILL PINA Page 11123 at 1807 All edits/amendments must be made on the electronic document DICTATION DATE: 03/01/191805 KEYBOARD ACTION ASSEMBLER: GARY 03/01/191805 RPT#: [id number] DC DATE:03/01/19 STATUS: DIS IN [facility] [address] [place] [address] END OF REPORT
== END 2019-03-01 17:11 | disposition home or self-care (01) | DRG 391 ==
LOC: D.M3 18:14 → OBSVTIME 18:16 → D.M3 02-22 12:00
PROVIDERS: Family Medicine; Internal Medicine Gastroenterology; Internal Medicine Nephrology; ADMIT Emergency Medicine; ATTEND Emergency Medicine
PROC: 0DB68ZX Excision of Stomach, Via Natural or Artificial Opening Endoscopic, Diagnostic (ICD-10-PCS; 2019-02-28)
PROC: 0D758ZZ Dilation of Esophagus, Via Natural or Artificial Opening Endoscopic (ICD-10-PCS; principal; 2019-02-28 15:00)
DX: K29.70 Gastritis, unspecified, without bleeding (principal); E43 Unspecified severe protein-calorie malnutrition; Z68.1 Body mass index [BMI] 19.9 or less, adult; N17.9 Acute kidney failure, unspecified; E87.1 Hypo-osmolality and hyponatremia; E86.0 Dehydration; I10 Essential (primary) hypertension; K58.9 Irritable bowel syndrome, unspecified; E03.9 Hypothyroidism, unspecified; K21.9 Gastro-esophageal reflux disease without esophagitis; R19.7 Diarrhea, unspecified; K31.84 Gastroparesis; D64.9 Anemia, unspecified; R13.10 Dysphagia, unspecified; K22.2 Esophageal obstruction; K44.9 Diaphragmatic hernia without obstruction or gangrene